=== PATIENT | female | born 1945 | race Caucasian/White ===

== ENCOUNTER 2016-05-09 17:38 | Emergency (ER) | payer BC, OTHER ==
[~2016-05-09] VITALS: Ht 160 cm; Wt 77.0 kg
[~2016-05-09 17:38] MED LIST: FLUO40CA PO; LEVO100T4 PO; LOVA40TA PO
[2016-05-09 17:48] VITALS: BP 112/64; PULSE 68; RESP 16; TEMP 97.3; O2SAT 97
[2016-05-09] MEDS ORDERED: SIMVPOW PO (18:02)
[2016-05-09] MEDS ORDERED: SERT-129 PO (18:02)
[2016-05-09] MEDS ORDERED: MULT1CHW70 PO (18:02)
[2016-05-09] MEDS ORDERED: LISI2.5T3 PO (18:02)
[2016-05-09] MEDS ORDERED: JANU50TA8 PO (18:02)
[2016-05-09] MEDS ORDERED: FISH120014 PO (18:02)
[2016-05-09] MEDS ORDERED: LEVO100T5 PO (18:02)
[2016-05-09] MEDS ORDERED: GLIP5TAB8 PO (18:02)
--- NOTE | 2016-05-09 18:07 | PD ---
HPI Chief Complaint: Musculoskeletal Complaint Time Seen by Provider: 18:04 Travel History International Travel<30 days: No Contact w/Intl Traveler<30days: No Traveled to known affect area: No History of Present Illness HPI 70-year-old female coming in with 2 week history of left dorsal lateral foot pain. Patient states 2 weeks ago she played golf and upon taking a golf shoe off she noted point tenderness over the dorsal lateral mid foot on the left. Patient states it improved with time, but then yesterday she played golf again and had pain in the same area which has persisted through the night last night and today. Patient has not tried ice or ibuprofen for the problem. Concerned about a possible stress fracture and would like an x-ray. She denies any other symptoms. She is allergic to penicillin. PFSH Past Medical History Depression: Yes High Cholesterol: Yes (PT THINKS SO) Cirrhosis: Yes Thyroid Disease: Yes Past Surgical History Tonsillectomy: Yes Other Surgery: Yes (BILAT BREAST REDUCTION) Social History Alcohol Use: No Tobacco Use: Yes Substance Use: Yes (MARIJUANA) Allergies-Medications (Allergen,Severity, Reaction): Coded Allergies: Penicillin (Verified Allergy, Mild, 05/09/16) Reported Meds & Prescriptions Reported Meds & Active Scripts Active Reported Levothyroxine (Levothyroxine Sodium) 100 Mcg Tab 100 Mcg PO DAILY Lisinopril 2.5 Mg Tab 2.5 Mg PO DAILY Sertraline (Sertraline HCl) 100 Mg Tab 100 Mg PO DAILY Glipizide 5 Mg Tab 5 Mg PO DAILY Take 30 minutes before a meal Fish Oil (Lyons-3 Fatty Acids) 1,200 Mg Cap 1 Tab PO DAILY Simvastatin (Simvastain (Bulk)) 1 Pow Pow 80 Mg PO DAILY Multivitamin Adult (Multiple Vitamins W/ Minerals) 1 Chw Chw 1 Tab PO BID Janumet (Sitagliptin-Metformin) 50-1,000 Mg Tab 1 Tab PO BID Review of Systems Except as stated in HPI: all other systems reviewed are Neg General / Constitutional: No: Fever Eyes: No: Visual changes HENT: No: Headaches Cardiovascular: No: Chest Pain or Discomfort Respiratory: No: Shortness of Breath Gastrointestinal: No: Abdominal Pain Genitourinary: No: Dysuria Musculoskeletal: Positive: Arthralgias, Pain (see history present illness.) Skin: No Rash Neurologic: No: Weakness Psychiatric: No: Depression Endocrine: No: Polydipsia Hematologic/Lymphatic: No: Easy Bruising Physical Exam Narrative GENERAL: Patient is in no acute distress. SKIN: Warm and dry. Normal color. Normal turgor. HEAD: Atraumatic. Normocephalic. EYES: Pupils equal and round. No scleral icterus. No injection or drainage. ENT: No nasal bleeding or discharge. Mucous membranes pink and moist. NECK: Trachea midline. No JVD. CARDIOVASCULAR: Regular rate and rhythm. RESPIRATORY: No accessory muscle use. Clear to auscultation. Breath sounds equal bilaterally. MUSCULOSKELETAL: Extremities without clubbing, cyanosis, or edema. No obvious deformities. Patient is noted to have high arches bilaterally. Patient has point tenderness without swelling over the dorsal lateral foot along the dorsal fourth metatarsal. Pain is not worsened by dorsiflexion or plantar flexion. No signs of cellulitis or abscess are noted. NEUROLOGICAL: Awake and alert. No obvious cranial nerve deficits. Motor grossly within normal limits. Five out of 5 muscle strength in the arms and legs. Normal speech. PSYCHIATRIC: Appropriate mood and affect; insight and judgment normal. Data Data Last Documented VS Vital Signs Date Time Temp Pulse Resp B/P Pulse Ox O2 Delivery O2 Flow Rate FiO2 05/09/16 17:48 97.3 68 16 112/64 97 Orders Foot, Complete ([id number]) (05/09/16 18:04) Ice/Cold Pack (05/09/16 18:04) [facility] Medical Decision Making Medical Screen Exam Complete: Yes Emergency Medical Condition: Yes Differential Diagnosis Tendinitis. Ganglion cyst. Possible stress fracture. Narrative Course Patient is medically stable at time of exam. X-rays of the left foot ordered. X-ray shows no acute fracture or dislocation. Cranial spurs noted. Per radiologist. Patient will be treated with prednisone 20 mg twice a day 5 days. Patient is encouraged to use different golfing shoes. Patient follow with her primary care physician or survey interviewer if symptoms continue or worsen. Diagnosis Primary Impression: Tendinitis of left foot Patient Instructions: General Instructions, Lower Extremity Tenosynovitis (DC) Additional Instructions: X-ray shows no acute fracture or dislocation. Cranial spurs noted. Per radiologist. Patient will be treated with prednisone 20 mg twice a day 5 days. Patient is encouraged to use different golfing shoes. Patient follow with her primary care physician or survey interviewer if symptoms continue or worsen. Disposition: 01 DISCHARGE HOME Condition: Stable Jeb Fields May 09, 2016 18:07
--- NOTE | 2016-05-09 18:26 | RADHPO ---
EXAM DATE/TIME: 05/09/2016 18:10 [place] COMPARISON: No previous studies available for comparison. INDICATIONS : Left foot pain from injury. MEDICAL HISTORY : Heel spurs. SURGICAL HISTORY : None. ENCOUNTER: Initial ACUITY: 2 weeks PAIN SCORE: 6/10 LOCATION: anterior left foot by tarsals/metatarsal. FINDINGS: Three view examination of the left foot demonstrates no soft tissue swelling, dislocation, or fractur e. The tarsal bones appear intact. The interphalangeal and metatarsophalangeal joints are intact. The calcaneus is intact. Bony mineralization is normal. Large plantar calcaneal spur. CONCLUSION: 1. No acute fracture. 2. Plantar calcaneal spur. Marquez Ramos MD on May 09, 2016 at 18:24 Board Certified Radiologist. This report was verified electronically.
[2016-05-09] MEDS ORDERED: PRED20 PO (18:40)
== END 2016-05-09 18:59 | disposition home or self-care (01) ==
LOC: PHEFT 17:38
DX: M65.872 Other synovitis and tenosynovitis, left ankle and foot (principal)
CPT/HCPCS: 73630; 99283